=== PATIENT | male | born 2000 | race Caucasian/White ===

== ENCOUNTER 2019-01-16 19:46 | Emergency (ER) | payer OTHER ==
[~2019-01-16] VITALS: Ht 175.3 cm; Wt 73.5 kg
[2019-01-16 21:47] VITALS: BP 116/62
== END 2019-01-16 21:50 | disposition home or self-care (01) ==
LOC: ED 20:03
DX: R55 Syncope and collapse (principal); R10.30 Lower abdominal pain, unspecified
CPT/HCPCS: 36415; 80053; 83690; 85025; 93005; 99284

== ENCOUNTER 2019-07-10 18:04 | Emergency (ER) | payer OTHER ==
[~2019-07-10] VITALS: Ht 175.3 cm; Wt 70.6 kg
--- NOTE | 2019-07-10 18:22 | NUR ---
PT TO ROOM AT THIS TIME.
--- NOTE | 2019-07-10 18:31 | NUR ---
RIGHT NOW PT DEINES HI/SI.
--- NOTE | 2019-07-10 18:34 | NUR ---
18 Y/O MALE PRESENTS TO ED WITH MOTHER AND C/O CP. PER PT "I'VE HAD PAIN IN MY CHEST AND IT FEELS LIKE MY HEART IS BEATING FAST. SOMTIMES I FEEL LIKE I CAN'T BREATH AND THE PAIN HURTS. THERE WAS CP AND THIS HAS HAPPENED QUITE OFTEN. IT HAPPENS A COUPLE TIMES A WEEK. LAST FRIDAY TO FRIDAY I HAD SOME LEFT SHOULDER PAIN WITH IT. I DON'T HAVE ANY PAIN NOW." PT PLACED ON CONT PULSE OX, NIBP, [employer]. MOTHER BEDSIDE. EDMD BEDSIDE. NO C/O N/V/D, TRAUMA, SYNCOPE
--- NOTE | 2019-07-10 18:55 | NUR ---
Bedside report from Marielena BANDA.
--- NOTE | 2019-07-10 18:57 | NUR ---
BEDSIDE REPORT TO DES AND SOLO YODER.
[2019-07-10 19:03] LABS: BASOPHILS # (AUTO) 0.01 x10^3/uL (0-0.3); BASOPHILS % (AUTO) 0 % (0-1); EOSINOPHILS # (AUTO) 0.06 x10^3/uL (0-0.8); EOSINOPHILS % (AUTO) 1 % (1-7); LYMPHOCYTES # (AUTO) 3.36 x10^3/uL (1-6.1); LYMPHOCYTES % (AUTO) 44 % (22-44); MD NO; MEAN CORPUSCULAR HGB CONC 33.8 g/dL (33.2-36.2); MEAN CORPUSCULAR VOLUME 91.9 fL (81-97); MEAN PLATELET VOLUME 9.3 fL (7.4-10.4); MONOCYTES % (AUTO) 7 % (2-9); NEUTROPHILS # (AUTO) 3.71 x10^3/uL (1.8-8.0); NEUTROPHILS % (AUTO) 49 % (42-75); PLATELET COUNT 266 x10^3/uL (130-400); RED BLOOD COUNT 5.15 x10^6/uL (4.38-5.82); RED CELL DISTRIBUTION WIDTH 12.6 % (9.4-14.8)
--- NOTE | 2019-07-10 19:07 | NUR ---
Pt resting in gurney, denies any current medication use, mom at bedside. Placed call light within reach.
[2019-07-10 19:12] LABS: ALBUMIN 4.6 g/dL (3.4-5.0); ANION GAP 3 mmol/L (5-15); CHLORIDE 107 mmol/L (98-107); CREATININE 0.99 mg/dL (0.7-1.3)
[2019-07-10 19:15] LABS: TROPONIN I < 0.015 ng/mL (0.000-0.045)
[2019-07-10 19:25] VITALS: BP 129/59
== END 2019-07-10 20:12 | disposition home or self-care (01) ==
LOC: ED 20:00
DX: R00.2 Palpitations (principal); F41.1 Generalized anxiety disorder; R07.89 Other chest pain; R42 Dizziness and giddiness
CPT/HCPCS: 36415; 71045; 80048; 82040; 84484; 85025; 93005; 99284

== ENCOUNTER 2020-04-02 07:41 | Emergency (ER) | payer OTHER ==
[~2020-04-02] VITALS: Ht 175.3 cm; Wt 64.4 kg
[2020-04-02 07:43] VITALS: BP 136/71
[2020-04-02] MEDS ORDERED: DEXAMETHASONE 4 MG TABLET PO ONE (08:00)
[2020-04-02] MEDS ORDERED: DEXAMETHASONE 4 MG TABLET ONE (08:02)
== END 2020-04-02 09:11 | disposition home or self-care (01) ==
LOC: ED 08:23
DX: J02.9 Acute pharyngitis, unspecified (principal); Z20.828 Contact with and (suspected) exposure to other viral communicable diseases
CPT/HCPCS: 36415; 87081; 87635; 87880; 99283